=== PATIENT | female | born 1960 | race Caucasian/White ===

== ENCOUNTER 2022-01-15 00:14 | Inpatient (IN) | payer BC, MEDICAID ==
[~2022-01-15] VITALS: Ht 149.9 cm; Wt 54.9 kg
[2022-01-15] MEDS ORDERED: ASPIRIN 81MG TABLET PO ONE (01:00)
[2022-01-15] MEDS ORDERED: NITROGLYCERIN 0.4MG TABLET SL SL PRN (01:00)
[2022-01-15 01:21] LABS: BASOPHILS % 0.9 % (0.0-2.0); EOSINOPHILS % 1.6 % (0.0-5.0); HEMOGLOBIN. 11.4 g/dL (12.0-16.0); LYMPHOCYTES % 43.1 % (20.0-50.0); MEAN CORPUSCULAR HEMOGLOBIN 29.4 pg (28.0-32.0); MEAN CORPUSCULAR VOLUME 84.9 fL (81.0-99.0); MEAN PLATELET VOLUME 8.6 fl (7.4-10.4); MONOCYTES % 8.3 % (2.0-8.0); NEUTROPHILS % 46.1 % (40.0-76.0); PLATELET 207 x1000/uL (130-400); RED BLOOD CELL COUNT 3.88 mill/uL (4.2-5.4); RED CELL DISTRIBUTION WIDTH 13.7 % (11.6-14.6)
[2022-01-15 01:28] LABS: CHLORIDE 99 mEq/L (98-107)
[2022-01-15] MEDS ORDERED: ONDANSETRON HCL 4MG/2ML INJ IV PRN (10:45)
[2022-01-15] MEDS ORDERED: CLONIDINE 0.1MG TABLET PO PRN (10:45)
[2022-01-15] MEDS ORDERED: HYDROCODONE/ACETAMINOPHEN 5/325MG TABLET PO PRN (10:45)
[2022-01-15] MEDS ORDERED: PROPRANOLOL HCL 10MG TABLET PO SCH (10:45)
[2022-01-15] MEDS ORDERED: MAGNESIUM/ALUMINUM HYDROXIDE/SIMETHICONE 30ML UDC PO PRN (10:45)
[2022-01-15] MEDS ORDERED: ALBUTEROL 6.7GM HFA INHALER ORI PRN (10:45)
[2022-01-15] MEDS ORDERED: LOSARTAN POTASSIUM 50 MG TABLET PO SCH (11:00)
[2022-01-15] MEDS ORDERED: HYDRALAZINE 20MG/ML VIAL IV PRN (11:45)
[2022-01-15] MEDS ORDERED: NALOXONE HCL 0.4MG/ML VIAL IV PRN (11:45)
[2022-01-15] MEDS: AMLODIPINE 10MG TABLET PO SCH (12:03)
[2022-01-15] MEDS: LOSARTAN POTASSIUM 50 MG TABLET PO SCH (12:03)
[2022-01-15] MEDS: ENOXAPARIN 40MG/0.4ML SYR SUBCUT SCH (12:03)
[2022-01-15] MEDS: PROPRANOLOL HCL 10MG TABLET PO SCH ×2 (12:24→20:54)
[2022-01-15] MEDS: ISOSORBIDE MONONITRATE 30MG TABLET SR 24HR PO SCH (12:25)
[2022-01-15] MEDS ORDERED: ASPI-1406 MT (13:29)
[2022-01-15] MEDS ORDERED: LOSA50TA41 MT (13:29)
[2022-01-15] MEDS ORDERED: ISOS30TA91 MT (13:29)
[2022-01-15] MEDS ORDERED: PROP20TA7 MT (13:29)
[2022-01-15] MEDS ORDERED: ROSU5TAB MT (13:29)
[2022-01-15 13:54] LABS: CLARITY URINE CLEAR (CLEAR); COLOR URINE YELLOW (YELLOW); KETONES URINE NEGATIVE (NEGATIVE); LEUKOCYTE ESTERASE URINE 1+ (NEGATIVE); NITRITE URINE NEGATIVE (NEGATIVE); OCCULT BLOOD URINE NEGATIVE (NEGATIVE); PH URINE 7.5 (4.5-8.0); PROTEIN URINE NEGATIVE (NEGATIVE); SPECIFIC GRAVITY URINE 1.004 (1.005-1.030); UROBILINOGEN URINE 0.2 E.U./dL (0.2-1.0)
[2022-01-15 14:30] VITALS: BP 147/80
[2022-01-15 16:00] VITALS: BP 110/77
[2022-01-15 20:00] VITALS: BP 98/68
[2022-01-15] MEDS ORDERED: ATORVASTATIN CALCIUM 10MG TABLET PO SCH (21:00)
[2022-01-15] MEDS: ACETAMINOPHEN 325MG TABLET PO PRN (23:07)
[2022-01-16] VITALS: BP 99/66
[2022-01-16 04:00] VITALS: BP 93/54
[2022-01-16] MEDS ORDERED: OMEPRAZOLE 20MG CAPSULE EXTENDED RELEASE PO SCH (06:30)
[2022-01-16 08:00] VITALS: BP 109/69
[2022-01-16 08:00] LABS: BASOPHILS % 0.5 % (0.0-2.0); EOSINOPHILS % 2.1 % (0.0-5.0); HEMATOCRIT. 31.6 % (36.0-48.0); HEMOGLOBIN. 10.8 g/dL (12.0-16.0); MEAN CORPUSCULAR HEMOGLOBIN 29.2 pg (28.0-32.0); MEAN CORPUSCULAR VOLUME 85.3 fL (81.0-99.0); MEAN PLATELET VOLUME 8.9 fl (7.4-10.4); MONOCYTES % 7.5 % (2.0-8.0); NEUTROPHILS % 42.9 % (40.0-76.0); PLATELET 188 x1000/uL (130-400); RED CELL DISTRIBUTION WIDTH 13.8 % (11.6-14.6)
[2022-01-16 08:25] LABS: CHLORIDE 99 mEq/L (98-107)
[2022-01-16 08:38] LABS: HDL CHOLESTEROL 45 mg/dL (40-59)
[2022-01-16 08:39] LABS: T4 FREE 1.02 ng/dL (0.76-1.46)
[2022-01-16] MEDS: AMLODIPINE 10MG TABLET PO SCH (08:39)
[2022-01-16] MEDS: ISOSORBIDE MONONITRATE 30MG TABLET SR 24HR PO SCH (08:39)
[2022-01-16 08:40] LABS: LDL CHOLESTEROL 44 mg/dL (5-100); PHOSPHORUS 3.9 mg/dL (2.5-4.9)
[2022-01-16] MEDS: ENOXAPARIN 40MG/0.4ML SYR SUBCUT SCH (08:40)
[2022-01-16] MEDS: LOSARTAN POTASSIUM 50 MG TABLET PO SCH (08:40)
[2022-01-16] MEDS: PROPRANOLOL HCL 10MG TABLET PO SCH (08:41)
[2022-01-16] MEDS ORDERED: ISOSORBIDE MONONITRATE 30MG TABLET SR 24HR PO SCH (09:00)
[2022-01-16] MEDS ORDERED: ASPIRIN 81MG TABLET PO SCH (09:00)
[2022-01-16 12:00] VITALS: BP 112/68
[2022-01-16 13:09] VITALS: BP 112/60
[2022-01-16 14:29] VITALS: BP 109/65
[2022-01-16] MEDS: ACETAMINOPHEN 325MG TABLET PO PRN (16:09)
== END 2022-01-16 14:40 | disposition home or self-care (01) | DRG 137 ==
LOC: ER 00:14 → MICUSO 04:52 → UNDOADMIN 04:52 → 7EST 13:05
PROVIDERS: ADMIT Internal Medicine; ATTEND Internal Medicine
DX: U07.1 COVID-19 (principal); J96.00 Acute respiratory failure, unspecified whether with hypoxia or hypercapnia; J12.82 Pneumonia due to coronavirus disease 2019; E87.1 Hypo-osmolality and hyponatremia; I16.0 Hypertensive urgency; R55 Syncope and collapse; I10 Essential (primary) hypertension; D64.9 Anemia, unspecified; I25.10 Atherosclerotic heart disease of native coronary artery without angina pectoris; Z86.73 Personal history of transient ischemic attack (TIA), and cerebral infarction without residual deficits; Z79.82 Long term (current) use of aspirin
CPT/HCPCS: 36415; 71045; 80048; 80053; 80061; 80076; 81003; 82728; 83735; 83880; 84100; 84145; 84439; 84443; 84484; 85025; 86140; 87426; 93005; 93970; 99285; J1650